=== PATIENT | male | born 1980 | race Caucasian/White ===

== ENCOUNTER 2022-09-28 20:14 | Emergency (ER) | payer BC | END 2022-09-28 22:25 | disposition home or self-care (01) | LOC: JP.ED 20:14 | DX: J02.0 Streptococcal pharyngitis (principal); I10 Essential (primary) hypertension; Z88.0 Allergy status to penicillin; Z79.899 Other long term (current) drug therapy | CPT/HCPCS: 87880-QW; 99283 ==